=== PATIENT | male | born 1960 | race African-American/Black ===

== ENCOUNTER 2025-04-29 14:53 | Emergency (ER) | payer OTHER ==
[~2025-04-29] VITALS: Ht 177.8 cm; Wt 96.4 kg
[2025-04-29] MEDS: TETANUS-DIPTH-ACEL PERTUSSIS 0.5ML SYR Tdap IM ONE (15:33)
[2025-04-29 15:36] VITALS: PULSE 77; RESP 20; O2SAT 98
--- NOTE | 2025-04-29 15:43 | ED.PDOC ---
History of Present Illness(SKN HPI Comments This is a 64 year old male presents to the ED with chief complaint of left knee swelling and pain. Patient reports that he has been experiencing swelling with associated redness to the left knee for the past 10 days. Patient relays that it appears as if he was bitten due to having a small hole to the center of the swelling. Patient denies any fever, chills, tingling, numbness, weakness, or limited ROM. Vital signs were stable on arrival. Patient's tetanus is not up-to-date. Chief Complaint: Abscess Time Seen by MD: 15:40 History of Present Illness: Nurses Notes, Medications, Allergies Allergies: Coded Allergies: NO KNOWN ALLERGIES (Unverified , 04/29/25) Information Source: Patient Mode of Arrival: Ambulatory Severity: Moderate Timing: Days Duration: Since onset Prehospital treatment: None Location: Other (Left knee) Mechanism: Spontaneous Onset Occurence: Outdoors Object: Unknown Condition of Object: None Retained Foreign Body: No Wound Type: Abscess Immunization Status of Animal: Unknown Tetanus: >5 Years History of: None Past Medical History PAST MEDICAL HISTORY: Denies Surgical History: Denies all surgeries Family History Family History: Reviewed,noncontributory to illness Social History Smoker: Non-Smoker Alcohol: Denies ETOH Use Drugs: Denies Drug Use Lives In: Home Constitutional: denies: chills, diaphoresis, fatigue, fever, malaise, sweats, weakness, others EENTM: denies: blurred vision, double vision, ear bleeding, ear discharge, ear drainage, ear pain, ear ringing, eye pain, eye redness, hearing loss, mouth pain, mouth swelling, nasal discharge, nose bleeding, nose congestion, nose pain, photophobia, tearing, throat pain, throat swelling, voice changes, others Respiratory: denies: cough, hemoptysis, orthopnea, SOB at rest, shortness of breath, SOB with excertion, stridor, wheezing, others Cardiovascular: denies: chest pain, dizzy spells, diaphoresis, Dyspnea on exertion, edema, irregular heart beat, left arm pain, lightheadedness, palpitations, PND, syncope, others Gastrointestinal: denies: abdomen distended, abdominal pain, blood streaked bowels, constipated, diarrhea, dysphagia, difficulty swallowing, hematemesis, melena, nausea, poor appetite, poor fluid intake, rectal bleeding, rectal pain, vomiting, others Genitourinary: denies: burning, dysuria, flank pain, frequency, hematuria, incontinence, penile discharge, penile sore, pain, testicle pain, testicle swelling, urgency, others Neurological: denies: dizziness, fainting, headache, left sided numbness, left sided weakness, numbness, paresthesia, pre-existing deficit, right sided numbness, right sided weakness, seizure, speech problems, tingling, tremors, weakness, others Musculoskeletal: denies: back pain, gout, joint pain, joint swelling, muscle pain, muscle stiffness, neck pain, others Integumetry: reports: others (swelling and redness to superior left knee); denies: bruises, change in color, change in hair/nails, dryness, laceration, lesions, lumps, rash, wounds Allergic/Immunocompromised: denies: Difficulty Healing, Frequent Infections, Hives, Itching, others Hematologic/Lymphatic: denies: anemia, blood clots, easy bleeding, easy bruising, swollen glands, others Endocrine: denies: excessive hunger, excessive sweating, excessive thirst, excessive urination, flushing, intolerance to cold, intolerance to heat, unexplained weight gain, unexplained weight loss, others Psychiatric: denies: anxiety, bipolar disorder, depression, hopeless, panic disorder, schizophrenia, sleepless, suicidal, others All Other Systems: Reviewed and Negative Physical Exam General Appearance: Moderate Distress ([id number] distress due to left knee/leg concern), Normal HEENT: Normal ENT Inspection, Pharynx Normal, TMs Normal Neck: Full Range of Motion, Non-Tender, Normal, Normal Inspection Respiratory: Chest Non-Tender, Lungs Clear, No Accessory Muscle Use, No Respiratory Distress, Normal Breath Sounds Cardiovascular: No Edema, No JVD, No Murmur, No Gallop, Normal Peripheral Pulses, Regular Rate/Rhythm Breast Exam: Deferred Gastrointestinal: No Organomegaly, Non Tender, No Pulsatile Mass, Normal Bowel Sounds, Soft Genitalia: Deferred Pelvic: Deferred Rectal: Deferred Extremities: Other (Patient displays a Lyme size indurated areas superior to the left knee with a central drainage point. Patient appears to have an infected insect bite. Localized erythema. Wound is nonconfluent) Neurologic: Alert, No Motor Deficits, Normal Affect, Normal Mood, No Sensory Deficits Cerebellar Function: Normal Reflexes: Normal Skin: Dry, Normal Color, Warm Lymphatic: No Adenopathy Was a procedure done? Was a procedure done?: No Differential Diagnosis (INTG) Differential Diagnosis: Cellulitis, Insect Envenomation, Other (Skin infection) X-Ray, Labs, Meds, VS Vital Signs Date Time Temp Pulse Resp B/P (MAP) Pulse Ox O2 Delivery O2 Flow Rate FiO2 04/29/25 15:36 77 20 98 Room Air* 0 21 04/29/25 15:17 97.9 71 18 148/88 (108) 79 97.9 Current Medications Medications (Trade) Dose Ordered Sig/Frandy Route Start Time Stop Time Status Last Admin Diphtheria/ Tetanus/Acell Pertussis (Boostrix T-Dap) 0.5 ml ONCE ONCE IM 04/29/25 15:30 04/29/25 15:31 DC 04/29/25 15:33 X-Ray, Labs, Meds, VS Comment Spent time discussing the patient's concerns with him. Advise utilizing antibiotics as directed until completion as well as warm compresses. Advised patient that if the wound becomes confluent, please return to the ED for an I and D procedure. Time of 1ST Reevaluation: 16:16 Reevaluation 1ST: Improved Consultation: PCP Patient Education/Counseling: Diagnosis, Treatment Family Education/Counseling: Diagnosis, Treatment, No Family Present SEPSIS Sepsis Screen Date sepsis recognized/suspect: Apr 29, 2025 Time Sepsis recognized/suspect: 1519 Recent Procedure: No On Antibiotic Therapy: No Respiratory Rate >20: No Heart Rate >90: No Temp<36 C (96.8 F) or >38.3 C: No SBP <90 or MAP <65 mmHG: No New Acute Mental Status Change: No Is the patient on CPAP, BIPAP,: No Vital Signs Date Time Temp Pulse Resp B/P (MAP) Pulse Ox O2 Delivery O2 Flow Rate FiO2 04/29/25 15:36 77 20 98 Room Air* 0 21 04/29/25 15:17 97.9 71 18 148/88 (108) 79 97.9 Medications Medications Dose Ordered Sig/Frandy Route Start Time Stop Time Status Last Admin Dose Admin Diphtheria/ Tetanus/Acell Pertussis 0.5 ml ONCE ONCE IM 04/29/25 15:30 04/29/25 15:31 DC 04/29/25 15:33 Departure 1 Departure Time of Disposition: 16:16 Impression: Primary Impression: Infected insect bite Disposition: HOME / SELF CARE / HOMELESS Condition: Stable Additional Instructions: Advise utilizing antibiotics as directed until completion as well as pain med ication as needed. Patient can utilize warm compresses that are no warm or than he would shower in. If the area becomes confluent, please return to ED for an I and D procedure. e-Prescriptions Ibuprofen Micronized (Ibuprofen) 800 Mg Tab 800 MG PO Q8HP PRN, #20 TAB Prov: ABEL CUELLAR PAC 04/29/25 Cephalexin (KEFLEX CAPSULE) 250 Mg Cp 1 CAP PO QID for 7 Days, #28 CAP Prov: ABEL CUELLAR PAC 04/29/25 Discharged With: Self, Friend Critical Care Note Critical Care Time?: No Stability Stability form required: No Heart Score Heart Score: Heart Score Response (Comments) Value History N/A 0 EKG N/A 0 Age N/A 0 Risk Factors N/A 0 Troponin N/A 0 Total 0 I personally scribed for ABEL CUELLAR PAC ([email or web address]) on 04/29/25 at 15:43. Electronically submitted by Vijay Tony ([email or web address]). ABEL CUELLAR PAC Apr 29, 2025 15:43
[2025-04-29] MEDS ORDERED: IBUP-1455 PO (16:18)
[2025-04-29] MEDS ORDERED: CEPH250C PO (16:18)
[2025-04-29 17:23] VITALS: BP 148/85; PULSE 64; RESP 17; TEMP 98.1; O2SAT 99
== END 2025-04-29 17:29 | disposition home or self-care (01) ==
LOC: ER 14:53
DX: L08.9 Local infection of the skin and subcutaneous tissue, unspecified (principal); W57.XXXA Bitten or stung by nonvenomous insect and other nonvenomous arthropods, initial encounter; Y93.89 Activity, other specified; Y92.89 Other specified places as the place of occurrence of the external cause; Y99.8 Other external cause status
CPT/HCPCS: 90471; 90715